=== PATIENT | female | born 1975 | race Caucasian/White ===

== ENCOUNTER → 2018-11-22 | Outpatient (CLI) | payer MEDICAID | END | disposition home or self-care (01) | LOC: U/S 14:26 | PROVIDERS: ATTEND Registered Nurse Obstetric, Inpatient | DX: O20.8 Other hemorrhage in early pregnancy (principal); O34.11 Maternal care for benign tumor of corpus uteri, first trimester; O09.511 Supervision of elderly primigravida, first trimester; Z3A.08 8 weeks gestation of pregnancy | CPT/HCPCS: 76801; 76817 ==